=== PATIENT | male | born 1995 | race Two or more races ===

== ENCOUNTER 2024-11-04 09:50 | Emergency (ER) | payer OTHER ==
[~2024-11-04] VITALS: Ht 177.8 cm; Wt 122.2 kg
[2024-11-04 10:10] VITALS: BP 137/73; PULSE 63; RESP 20; TEMP 97.4; O2SAT 99
[2024-11-04 10:19] VITALS: PULSE 64; RESP 20; O2SAT 99
--- NOTE | 2024-11-04 10:50 | DVH ---
CLINICAL INDICATION: PAIN AND SWELLING TECHNIQUE: XY L ANKLE 2 VIEW XRAY Comparison: None FINDINGS/IMPRESSION: : 0.9 cm ossicle is present at the anterior dorsal aspect of the talus which may represent an age indet erminate avulsion fracture. Moderate ankle joint effusion. Lateral soft-tissue swelling. Degenerative spurring of the calcaneus.
--- NOTE | 2024-11-04 10:51 | ED.PDOC ---
History of Present Illness HPI Comments This is a 29-year-old male who comes in with chief complaint of left ankle injury. The patient states that the symptoms started yesterday at approximately 7:30 a.m. in the morning. The patient states that the pain is a 7/10. The patient denies any other complaints at this time. He states that he fell down off the stairs when he was on his way to work. The patient denies any other complaints at this time. Chief Complaint: Lower Extremity Time Seen by MD: 10:03 Primary Care Provider: unknown Reviewed Notes: Nurses Notes, Medications, Allergies (No allergies to medications) Allergies: Coded Allergies: NO KNOWN ALLERGIES (Unverified , 11/04/24) Home Meds Active Scripts Hydrocodone-Acetaminophen (Hydrocodone Bitartrate/AC 5-325 mg) 1 Tab Tab, 1 TAB PO Q8HP PRN for 5 Days, #15 TAB Prov:DESIREE GARZA MD 11/04/24 Information Source: Patient Mode of Arrival: Ambulatory Severity: Moderate Timing: Days Duration: Since onset Prehospital treatment: None Location: Left ankle pain and swelling Past Medical History PAST MEDICAL HISTORY: Denies Surgical History: Denies all surgeries Family History Family History: Family hx of DM Social History Smoker: Quit Less Than 1 Year Alcohol: Occasionally Drugs: Marijuana Lives In: Home Constitutional: denies: chills, diaphoresis, fatigue, fever, malaise, sweats, weakness, others EENTM: denies: blurred vision, double vision, ear bleeding, ear discharge, ear drainage, ear pain, ear ringing, eye pain, eye redness, hearing loss, mouth pain, mouth swelling, nasal discharge, nose bleeding, nose congestion, nose pain, photophobia, tearing, throat pain, throat swelling, voice changes, others Respiratory: denies: cough, hemoptysis, orthopnea, SOB at rest, shortness of breath, SOB with excertion, stridor, wheezing, others Cardiovascular: denies: chest pain, dizzy spells, diaphoresis, Dyspnea on exertion, edema, irregular heart beat, left arm pain, lightheadedness, palpitations, PND, syncope, others Gastrointestinal: denies: abdomen distended, abdominal pain, blood streaked bowels, constipated, diarrhea, dysphagia, difficulty swallowing, hematemesis, melena, nausea, poor appetite, poor fluid intake, rectal bleeding, rectal pain, vomiting, others Genitourinary: denies: burning, dysuria, flank pain, frequency, hematuria, incontinence, penile discharge, penile sore, pain, testicle pain, testicle swelling, urgency, others Neurological: denies: dizziness, fainting, headache, left sided numbness, left sided weakness, numbness, paresthesia, pre-existing deficit, right sided numbness, right sided weakness, seizure, speech problems, tingling, tremors, weakness, others Musculoskeletal: reports: joint swelling (Left ankle pain and swelling); yazmin es: back pain, gout, joint pain, muscle pain, muscle stiffness, neck pain, others Integumetry: denies: bruises, change in color, change in hair/nails, dryness, laceration, lesions, lumps, rash, wounds, others Allergic/Immunocompromised: denies: Difficulty Healing, Frequent Infections, Hives, Itching, others Hematologic/Lymphatic: denies: anemia, blood clots, easy bleeding, easy bruising, swollen glands, others Endocrine: denies: excessive hunger, excessive sweating, excessive thirst, excessive urination, flushing, intolerance to cold, intolerance to heat, unexplained weight gain, unexplained weight loss, others Physical Exam General Appearance: Mild Distress HEENT: Normal ENT Inspection, Pharynx Normal, TMs Normal Neck: Full Range of Motion, Non-Tender, Normal, Normal Inspection Respiratory: Chest Non-Tender, Lungs Clear, No Accessory Muscle Use, No Respiratory Distress, Normal Breath Sounds Cardiovascular: No Edema, No JVD, No Murmur, No Gallop, Normal Peripheral Pulses, Regular Rate/Rhythm Breast Exam: Deferred Gastrointestinal: No Organomegaly, Non Tender, No Pulsatile Mass, Normal Bowel Sounds, Soft Genitalia: Deferred Pelvic: Deferred Rectal: Deferred Extremities: No calf tenderness, Normal capillary refill, Normal inspection, Normal range of motion, Non-tender, No pedal edema Musculoskeletal : Location: Left Extremity Location: Ankle Apperance: Swelling, Limited ROM, Tenderness: Moderate Neurologic: Alert, building coordinator II-XII nml as Tested, No Motor Deficits, Normal Affect, Normal Mood, No Sensory Deficits Cerebellar Function: Normal Reflexes: Normal Skin: Dry, Normal Color, Warm Lymphatic: No Adenopathy Was a procedure done? Was a procedure done?: No Differential Dx Considerations may include: Fracture, strain, dislocation X-Ray, Labs, Meds, VS Vital Signs Date Time Temp Pulse Resp B/P (MAP) Pulse Ox O2 Delivery O2 Flow Rate FiO2 11/04/24 10:19 64 20 99 Room Air 11/04/24 10:10 97.4 63 20 137/73 (94) 99 97.4 11/04/24 10:10 63 20 99 Room Air* 0 21 11/04/24 10:00 98.6 74 16 154/90 (111) 100 98.6 X-ray of the left ankle shows: FINDINGS/IMPRESSION: : 0.9 cm ossicle is present at the anterior dorsal aspect of the talus which may represent an age indeterminate avulsion fracture. Moderate ankle joint effusion. Lateral soft-tissue swelling. Degenerative spurring of the calcaneus. The patient was being placed in stirrup splint. The patient was given crutches and gait training The patient was given ibuprofen 600 mg here in the emergency department's The patient was now being discharged on [place] and will follow up with the primary care doctor The patient will return to the emergency department's the condition worsens. Images Reviewed?: Images reviewed and evaluated by me Time of 1ST Reevaluation: 10:50 Reevaluation 1ST: Unchanged Time of 2ND Reevaluation: 11:00 Reevaluation 2ND: Improved Patient Education/Counseling: Diagnosis, Treatment, Prognosis, Need For Follow Up Family Education/Counseling: No Family Present Departure 1 Departure Time of Disposition: 11:00 Impression: Primary Impression: Closed left ankle fracture Qualified Codes: S82.892A - Other fracture of left lower leg, initial en counter for closed fracture Disposition: HOME / SELF CARE / HOMELESS Condition: Fair e-Prescriptions Hydrocodone-Acetaminophen (Hydrocodone Bitartrate/AC 5-325 mg) 1 Tab Tab 1 TAB PO Q8HP PRN for 5 Days, #15 TAB Prov: DESIREE GARZA MD 11/04/24 Discharged With: Self Critical Care Note Critical Care Time?: No Stability Stability form required: No Heart Score Heart Score: Heart Score Response (Comments) Value History N/A 0 EKG N/A 0 Age N/A 0 Risk Factors N/A 0 Troponin N/A 0 Total 0 DESIREE GARZA MD Nov 04, 2024 10:51
[2024-11-04] MEDS ORDERED: HYDR-4902 PO (10:57)
[2024-11-04] MEDS: IBUPROFEN 600 MG TAB PO ONE (11:15)
== END 2024-11-04 12:02 | disposition home or self-care (01) ==
LOC: ER 09:50
DX: S82.892A Other fracture of left lower leg, initial encounter for closed fracture (principal); F12.90 Cannabis use, unspecified, uncomplicated; Z87.891 Personal history of nicotine dependence; Z79.899 Other long term (current) drug therapy; W10.9XXA Fall (on) (from) unspecified stairs and steps, initial encounter; Y93.89 Activity, other specified; Y92.89 Other specified places as the place of occurrence of the external cause; Y99.8 Other external cause status
CPT/HCPCS: 29515; 73600